=== PATIENT | female | born 2000 | race Caucasian/White ===

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

== ENCOUNTER → 2019-02-15 | Outpatient (CLI) | payer OTHER ==
[~2019-02-15] MED LIST changes: +[UNRECOGNIZED DRUG - REMARK]
[2019-02-18 07:08] LABS: CHLAMYDIA BY NAA Negative (Negative); GONOCOCCUS BY NAA Negative (Negative); TRICH VAG BY NAA Negative (Negative)
== END | disposition home or self-care (01) ==
LOC: LAB EV 12:48 → LAB SHORT 12:48
PROVIDERS: Physician Assistant Medical
DX: N94.10 Unspecified dyspareunia (principal)
CPT/HCPCS: 87070; 87147; 87205; 87491; 87591; 87661

== ENCOUNTER 2019-02-22 09:12 | Emergency (ER) | payer OTHER ==
[~2019-02-22] VITALS: Ht 162.6 cm; Wt 92.5 kg
[~2019-02-22 09:12] MED LIST changes: -[UNRECOGNIZED DRUG - REMARK]
[2019-02-22] MEDS ORDERED: [UNRECOGNIZED DRUG - REMARK] (09:32)
== END 2019-02-22 10:35 | disposition home or self-care (01) ==
LOC: ER 09:12
DX: R10.9 Unspecified abdominal pain (principal); Z79.899 Other long term (current) drug therapy
CPT/HCPCS: 74018; 99283-25

== ENCOUNTER 2019-10-18 23:24 | Emergency (ER) | payer OTHER ==
[~2019-10-18] VITALS: Ht 162.6 cm; Wt 90.7 kg
[~2019-10-18 23:24] MED LIST changes: +[UNRECOGNIZED DRUG - REMARK]
[2019-10-19] MEDS ORDERED: HYDROXYZINE PAM25 MG PO (00:23)
[2019-10-19] MEDS ORDERED: HYDSUL200 PO (00:23)
[2019-10-19] MEDS ORDERED: Cymbalta30 MG (00:23)
[2019-10-19 01:08] LABS: BASOPHILS ABSOLUTE AUTO 0.05 K/mm3 (0.00-0.23); BASOPHILS PERCENT AUTO 0 % (0-2); EOSINOPHILS ABSOLUTE AUTO 0.32 K/mm3 (0.00-0.68); EOSINOPHILS PERCENT AUTO 2 % (0-6); Hematocrit 45.8 % (33.0-51.0); Hemoglobin 14.9 g/dL (11.5-16.0); IMMATURE GRAN ABSOLUTE AUTO 0.05 K/mm3 (0.00-0.10); IMMATURE GRAN PERCENT AUTO 0 % (0-1); LYMPHOCYTES ABSOLUTE AUTO 4.11 K/mm3 (0.84-5.20); LYMPHOCYTES PERCENT AUTO 29 % (21-46); MONOCYTES ABSOLUTE AUTO 1.37 K/mm3 (0.16-1.47); MONOCYTES PERCENT AUTO 10 % (4-13); Mean Corpuscular HGB 30.2 pg (26.0-34.0); Mean Corpuscular HGB Conc 32.5 g/dL (31.5-36.5); Mean Corpuscular Volume 93 fL (80-100); Mean Platelet Volume 9.6 fL (9.1-12.4); NEUTROPHILS ABSOLUTE AUTO 8.21 K/mm3 (1.96-9.15); NEUTROPHILS PERCENT AUTO 58 % (41-73); Platelet Count 365 K/mm3 (150-400); RDW Coefficient Variation 12.2 % (11.7-14.2); Red Blood Cell Count 4.93 M/mm3 (3.80-5.20); White Blood Cell Count 14.11 K/mm3 (4.00-11.30)
[2019-10-19 01:13] LABS: Source, Urine Clean Catch
[2019-10-19 01:17] LABS: Appearance, Urine Clear (Clear); Bilirubin, Urine Neg (Neg); Blood, Urine 4+ (Neg); Color, Urine Yellow (P-Yellow); Glucose Qualitative, Urine Neg (Neg); Ketones, Urine Neg (Neg); Leukocyte Esterase, Urine 1+ (Neg); Nitrite, Urine Neg (Neg); Protein, Urine 2+ (Neg); Specific Gravity, Urine 1.015 (1.003-1.022); Urobilinogen, Urine NORM (Normal)
[2019-10-19 01:28] LABS: Bacteria Many /hpf; Squamous Epithelial Cells Mod /hpf (Few)
[2019-10-19 01:30] LABS: Alanine Aminotransfer (ALT/SGP 22 U/L (12-78); Albumin, Blood 3.9 g/dL (3.4-5.0); Albumin/Globulin Ratio 0.9 (0.8-1.8); Alk Phos 127 U/L (50-136); Anion Gap 7 mmol/L (6-16); Aspartate Aminotrans (AST/SGOT 12 U/L (12-37); Bilirubin, Total 0.5 mg/dL (0.1-1.0); Blood Urea Nitrogen 14 mg/dL (8-24); Bun/Creatinine Ratio 13.9 (12.0-20.0); CO2, Blood 25 mmol/L (21-32); Calcium, Blood 9.4 mg/dL (8.5-10.1); Chloride, Blood 109 mmol/L (98-108); Creatinine, Blood 1.01 mg/dL (0.40-1.00); Globulin, Blood 4.5 g/dL (2.2-4.0); Glomerular Filtration Rate >60 (60-); Glucose, Blood 86 mg/dL (70-99); Potassium, Blood 4.2 mmol/L (3.5-5.5); Sodium, Blood 141 mmol/L (136-145); Total Protein, Blood 8.4 g/dL (6.4-8.2)
[2019-10-19] MEDS ORDERED: IBUP600 PO (02:39)
[2019-10-19] MEDS ORDERED: KEFLEX500 MG PO (02:39)
== END 2019-10-19 03:03 | disposition home or self-care (01) ==
LOC: ER 23:24
PROVIDERS: Physician Assistant
DX: N12 Tubulo-interstitial nephritis, not specified as acute or chronic (principal); Z88.8 Allergy status to other drugs, medicaments and biological substances; Z79.899 Other long term (current) drug therapy
CPT/HCPCS: 36415; 80053; 81001; 81025; 83690; 85025; 87077; 87086; 87186; 96365; 96375; 99284; J0696; J1885

== ENCOUNTER 2021-12-15 11:06 | Emergency (ER) | payer OTHER ==
[~2021-12-15] VITALS: Ht 162.6 cm; Wt 73.5 kg
[~2021-12-15 11:06] MED LIST changes: +Cymbalta30 MG; +HYDROXYZINE PAM25 MG PO; +HYDSUL200 PO; +IBUP600 PO; +KEFLEX500 MG PO
[2021-12-15 11:42] LABS: Source, Urine Clean Catch
[2021-12-15 11:42] LABS: BASOPHILS ABSOLUTE AUTO 0.03 K/mm3 (0.00-0.23); BASOPHILS PERCENT AUTO 0 % (0-2); EOSINOPHILS ABSOLUTE AUTO 0.15 K/mm3 (0.00-0.68); EOSINOPHILS PERCENT AUTO 2 % (0-6); Hematocrit 43.9 % (33.0-51.0); Hemoglobin 14.5 g/dL (11.5-16.0); IMMATURE GRAN ABSOLUTE AUTO 0.01 K/mm3 (0.00-0.10); IMMATURE GRAN PERCENT AUTO 0 % (0-1); LYMPHOCYTES ABSOLUTE AUTO 2.18 K/mm3 (0.84-5.20); LYMPHOCYTES PERCENT AUTO 30 % (21-46); MONOCYTES ABSOLUTE AUTO 0.61 K/mm3 (0.16-1.47); MONOCYTES PERCENT AUTO 8 % (4-13); Mean Corpuscular HGB 31.2 pg (26.0-34.0); Mean Corpuscular Volume 94 fL (80-100); Mean Platelet Volume 9.6 fL (9.1-12.4); NEUTROPHILS ABSOLUTE AUTO 4.29 K/mm3 (1.96-9.15); NEUTROPHILS PERCENT AUTO 59 % (41-73); Platelet Count 338 K/mm3 (150-400); RDW Coefficient Variation 12.9 % (11.7-14.2); RDW Standard Deviation 45.3 fL (35.1-46.3); Red Blood Cell Count 4.65 M/mm3 (3.80-5.20); White Blood Cell Count 7.27 K/mm3 (4.00-11.30)
[2021-12-15 11:46] LABS: Appearance, Urine Clear (Clear); Bilirubin, Urine Neg (Neg); Blood, Urine 1+ (Neg); Color, Urine Yellow (P-Yellow); Glucose Qualitative, Urine Neg (Neg); Ketones, Urine Neg (Neg); Leukocyte Esterase, Urine Neg (Neg); Nitrite, Urine Neg (Neg); Protein, Urine 1+ (Neg); Specific Gravity, Urine 1.025 (1.003-1.022); Urobilinogen, Urine NORM (Normal)
[2021-12-15 11:59] LABS: Bacteria Rare /hpf; Red Blood Cells, Urine 0-2 /hpf (0-2); Squamous Epithelial Cells Few /hpf (Few); White Blood Cells, Urine 0-2 /hpf (0-5)
[2021-12-15 11:59] LABS: Albumin, Blood 3.9 g/dL (3.4-5.0); Albumin/Globulin Ratio 1.1 (0.8-1.8); Bilirubin, Total 0.5 mg/dL (0.1-1.0); Bun/Creatinine Ratio 21.5 (12.0-20.0); Calcium, Blood 8.8 mg/dL (8.5-10.1); Creatinine, Blood 0.84 mg/dL (0.40-1.00); Globulin, Blood 3.5 g/dL (2.2-4.0); Potassium, Blood 4.3 mmol/L (3.5-5.5); Total Protein, Blood 7.4 g/dL (6.4-8.2)
[2021-12-15] MEDS ORDERED: AMOCLA875 PO (12:53)
[2021-12-15] MEDS ORDERED: ONDA4ODT MM (12:53)
== END 2021-12-15 13:01 | disposition home or self-care (01) ==
LOC: ER 11:06
PROVIDERS: Physician Assistant
DX: K02.9 Dental caries, unspecified (principal); R11.2 Nausea with vomiting, unspecified; Z91.018 Allergy to other foods; Z88.8 Allergy status to other drugs, medicaments and biological substances
CPT/HCPCS: 36415; 80053; 81001; 83690; 84703; 85025; 96374; 99283-25; J2405; J7030

== ENCOUNTER → 2022-07-01 | Outpatient (CLI) | payer OTHER ==
[~2022-07-01] MED LIST changes: +AMOCLA875 PO; +ONDA4ODT MM
== END | disposition home or self-care (01) ==
LOC: LAB SHORT 15:20
PROVIDERS: Advanced Practice Midwife
DX: Z01.419 Encounter for gynecological examination (general) (routine) without abnormal findings (principal); R35.0 Frequency of micturition
CPT/HCPCS: 87086; G0145

== ENCOUNTER → 2023-01-17 | Outpatient (CLI) | payer OTHER ==
[~2023-01-17] MED LIST changes: +ACET500 PO; +QUETIAPINE FUM10011 PO
== END | disposition home or self-care (01) ==
LOC: LAB SHORT 12:43 → LAB 12:43
DX: Z33.1 Pregnant state, incidental (principal)
CPT/HCPCS: 84702

== ENCOUNTER 2023-01-19 22:40 | Emergency (ER) | payer OTHER ==
[~2023-01-19] VITALS: Ht 165.1 cm; Wt 90.7 kg
[~2023-01-19 22:40] MED LIST changes: -ACET500 PO; -QUETIAPINE FUM10011 PO
[2023-01-19] MEDS ORDERED: QUETIAPINE FUM10011 PO (23:28)
[2023-01-20 00:27] LABS: Source, Urine Clean Catch
[2023-01-20 00:34] LABS: Bilirubin, Urine Neg (Neg); Blood, Urine Neg (Neg); Glucose Qualitative, Urine Neg (Neg); Ketones, Urine 2+ (Neg); Leukocyte Esterase, Urine Neg (Neg); Nitrite, Urine Neg (Neg); Protein, Urine Neg (Neg); Urobilinogen, Urine NORM (Normal)
[2023-01-20 00:55] LABS: Appearance, Urine Clear (Clear); Color, Urine Yellow (P-Yellow)
[2023-01-20] MEDS ORDERED: ACET500 PO (01:04)
[2023-01-20 01:24] VITALS: BP 118/88
== END 2023-01-20 01:06 | disposition home or self-care (01) ==
LOC: ER 22:40
PROVIDERS: Emergency Medicine
DX: O20.0 Threatened abortion (principal); Z3A.01 Less than 8 weeks gestation of pregnancy; Z91.018 Allergy to other foods; Z79.899 Other long term (current) drug therapy
CPT/HCPCS: 76801; 76817; 81003; 84702; 86900; 86901; 99284-25

== ENCOUNTER 2023-01-27 22:27 | Emergency (ER) | payer OTHER ==
[~2023-01-27] VITALS: Ht 165.1 cm; Wt 90.7 kg
[~2023-01-27 22:27] MED LIST changes: +ACET500 PO; +QUETIAPINE FUM10011 PO
[2023-01-27 23:04] LABS: BASOPHILS ABSOLUTE AUTO 0.02 K/mm3 (0.00-0.23); BASOPHILS PERCENT AUTO 0 % (0-2); EOSINOPHILS ABSOLUTE AUTO 0.04 K/mm3 (0.00-0.68); EOSINOPHILS PERCENT AUTO 0 % (0-6); Hemoglobin 14.3 g/dL (11.5-16.0); IMMATURE GRAN ABSOLUTE AUTO 0.04 K/mm3 (0.00-0.10); IMMATURE GRAN PERCENT AUTO 0 % (0-1); LYMPHOCYTES ABSOLUTE AUTO 3.34 K/mm3 (0.84-5.20); LYMPHOCYTES PERCENT AUTO 23 % (21-46); MONOCYTES ABSOLUTE AUTO 1.15 K/mm3 (0.16-1.47); MONOCYTES PERCENT AUTO 8 % (4-13); Mean Corpuscular HGB 30.7 pg (26.0-34.0); Mean Corpuscular Volume 90 fL (80-100); Mean Platelet Volume 9.3 fL (9.1-12.4); NEUTROPHILS ABSOLUTE AUTO 9.72 K/mm3 (1.96-9.15); NEUTROPHILS PERCENT AUTO 68 % (41-73); Platelet Count 375 K/mm3 (150-400); RDW Coefficient Variation 12.8 % (11.7-14.2); RDW Standard Deviation 41.7 fL (35.1-46.3); Red Blood Cell Count 4.66 M/mm3 (3.80-5.20); White Blood Cell Count 14.31 K/mm3 (4.00-11.30)
[2023-01-27 23:51] LABS: Albumin, Blood 4.1 g/dL (3.4-5.0); Albumin/Globulin Ratio 1.1 (0.8-1.8); Bilirubin, Total 0.4 mg/dL (0.1-1.0); Bun/Creatinine Ratio 15.2 (12.0-20.0); Calcium, Blood 9.1 mg/dL (8.5-10.1); Creatinine, Blood 0.72 mg/dL (0.40-1.00); Globulin, Blood 3.8 g/dL (2.2-4.0); Potassium, Blood 3.7 mmol/L (3.5-5.5); Total Protein, Blood 7.9 g/dL (6.4-8.2)
[2023-01-28] MEDS ORDERED: PRENATAL TABLE1 EAC2 PO (00:23)
[2023-01-28 00:31] LABS: Source, Urine Clean Catch
[2023-01-28 00:37] LABS: Bilirubin, Urine Neg (Neg); Blood, Urine Neg (Neg); Glucose Qualitative, Urine Neg (Neg); Ketones, Urine 3+ (Neg); Leukocyte Esterase, Urine Neg (Neg); Nitrite, Urine Neg (Neg); Protein, Urine Neg (Neg); Specific Gravity, Urine 1.015 (1.003-1.022); Urobilinogen, Urine NORM (Normal)
[2023-01-28 00:47] LABS: Appearance, Urine Clear (Clear); Color, Urine Yellow (P-Yellow)
[2023-01-28 03:03] VITALS: BP 134/91
[2023-01-28] MEDS ORDERED: ACET500 PO (03:41)
== END 2023-01-28 03:59 | disposition home or self-care (01) ==
LOC: ER 22:27
PROVIDERS: Student in an Organized Health Care Education/Training Program
DX: O26.891 Other specified pregnancy related conditions, first trimester (principal); R10.2 Pelvic and perineal pain; O99.281 Endocrine, nutritional and metabolic diseases complicating pregnancy, first trimester; E86.0 Dehydration; O34.81 Maternal care for other abnormalities of pelvic organs, first trimester; N83.209 Unspecified ovarian cyst, unspecified side; Z3A.01 Less than 8 weeks gestation of pregnancy; Z91.02 Food additives allergy status
CPT/HCPCS: 76801; 76817; 80053; 81003; 84702; 85025; 96361; 96374; 99284; J1885; J7030

== ENCOUNTER → 2023-08-25 | Outpatient (CLI) | payer OTHER ==
[~2023-08-25] MED LIST changes: +PRENATAL TABLE1 EAC2 PO
== END ==
LOC: LAB 14:22 → LAB SHORT 14:22
DX: O09.893 Supervision of other high risk pregnancies, third trimester (principal)
CPT/HCPCS: 87081; 87150

== ENCOUNTER 2023-09-17 19:04 | Inpatient (IN) | payer OTHER ==
[2023-09-17] VITALS (7 sets, daily range): BP systolic 136–166; BP diastolic 75–98
[~2023-09-17] VITALS: Ht 162.6 cm; Wt 102.5 kg
[2023-09-17] MEDS ORDERED: Misoprostol 25 MCG Tab VAG ONE (20:00)
[2023-09-17] MEDS ORDERED: FentaNYL Citrate 50 MCG/ML 2 ML Injection IV ONE (21:00)
[2023-09-17] MEDS ORDERED: Acetaminophen 500 MG Tab PO PRN (21:00)
[2023-09-17] MEDS ORDERED: Lactated Ringer's 1,000 ML IV SCH (21:00)
[2023-09-17] MEDS ORDERED: Insulin Glargine-Yfgn 100 Unit/mL 3 ML SYR SC SCH (21:00)
[2023-09-17] MEDS ORDERED: OXYTOCIN/RINGER'S LACTATE 500 ML IV SCH ×2 (21:00)
[2023-09-17 21:19] LABS: BASOPHILS ABSOLUTE AUTO 0.02 K/mm3 (0.00-0.23); BASOPHILS PERCENT AUTO 0 % (0-2); EOSINOPHILS PERCENT AUTO 2 % (0-6); Hematocrit 37.8 % (33.0-51.0); Hemoglobin 13.1 g/dL (11.5-16.0); IMMATURE GRAN ABSOLUTE AUTO 0.07 K/mm3 (0.00-0.10); IMMATURE GRAN PERCENT AUTO 1 % (0-1); LYMPHOCYTES ABSOLUTE AUTO 2.13 K/mm3 (0.84-5.20); LYMPHOCYTES PERCENT AUTO 16 % (21-46); MONOCYTES ABSOLUTE AUTO 1.15 K/mm3 (0.16-1.47); MONOCYTES PERCENT AUTO 8 % (4-13); Mean Corpuscular HGB 31.3 pg (26.0-34.0); Mean Corpuscular HGB Conc 34.7 g/dL (31.5-36.5); Mean Corpuscular Volume 90 fL (80-100); Mean Platelet Volume 10.7 fL (9.1-12.4); NEUTROPHILS ABSOLUTE AUTO 10.15 K/mm3 (1.96-9.15); NEUTROPHILS PERCENT AUTO 74 % (41-73); Platelet Count 240 K/mm3 (150-400); RDW Coefficient Variation 13.4 % (11.7-14.2); RDW Standard Deviation 43.9 fL (35.1-46.3); Red Blood Cell Count 4.19 M/mm3 (3.80-5.20); White Blood Cell Count 13.72 K/mm3 (4.00-11.30)
[2023-09-17] MEDS ORDERED: Calcium Carbonate 500 MG Tab Chew PO ONE (22:35)
[2023-09-17] MEDS ORDERED: Zolpidem Tartrate 10 MG Tab PO SCH (23:05)
[2023-09-18] VITALS (22 sets, daily range): BP systolic 118–206; BP diastolic 71–109
[2023-09-18] MEDS ORDERED: BUPR150ER PO (07:28)
[2023-09-18] MEDS ORDERED: BUPROPION XL450 MG PO (07:28)
[2023-09-18] MEDS ORDERED: Ampicillin Sod 2,000 MG in NS 100 ML IV STA (08:07)
[2023-09-18] MEDS ORDERED: Lidocaine HCl 1% 30 ML SDV XX SCH (08:15)
[2023-09-18] MEDS ORDERED: ePHEDrine Sulfate 50 MG/ML 1ML Injection XX PRN (08:15)
[2023-09-18] MEDS ORDERED: Oxytocin 10 Unit / ML Vial IM SCH (08:15)
[2023-09-18] MEDS ORDERED: Castor Oil 59.146 ML BTL TOP SCH (08:15)
[2023-09-18] MEDS ORDERED: Methylergonovine Maleate 0.2MG / ML 1ML Amp IM SCH (08:15)
[2023-09-18] MEDS ORDERED: Lactated Ringer's 1,000 ML IV SCH ×2 (08:15→23:55)
[2023-09-18] MEDS ORDERED: Bupivacaine HCl 2.5 MG/ML 10ML P/F Injection XX SCH (08:15)
[2023-09-18] MEDS ORDERED: FentaNYL 2mcg/ml-Bup 0.1% Epd 250 ML EPI SCH (08:15)
[2023-09-18] MEDS ORDERED: Bupivacaine 0.5% HCl 5 MG/ML 30MLVIAL XX SCH (08:15)
[2023-09-18] MEDS ORDERED: Misoprostol 200 MCG Tab PR SCH (08:15)
[2023-09-18] MEDS ORDERED: Ampicillin Sod 1,000 MG in NS 100 ML IV SCH (12:00)
[2023-09-18] MEDS ORDERED: FentaNYL Citrate 50 MCG/ML 2 ML Injection ONE (15:45)
[2023-09-18] MEDS ORDERED: FentaNYL Citrate 50 MCG/ML 2 ML Injection IV ONE (17:10)
[2023-09-18] MEDS ORDERED: ePHEDrine Sulfate 50 MG/ML 1ML Injection IV PRN (20:45)
[2023-09-18] MEDS ORDERED: Naloxone HCl 0.4MG / ML 1ML Vial IV PRN (20:45)
[2023-09-18] MEDS ORDERED: Zolpidem Tartrate 10 MG Tab PO SCH (21:00)
[2023-09-18] MEDS ORDERED: Calcium Carbonate 500 MG Tab Chew PO PRN (22:55)
[2023-09-18] MEDS ORDERED: CeFAZolin Sodium 2,000 MG in NS 100 ML IV SCH (23:55)
[2023-09-19] VITALS (12 sets, daily range): BP systolic 113–165; BP diastolic 64–104
[2023-09-19] MEDS ORDERED: Citric Acid/Sodium Citrate 30 ML BTL PO ONE (00:10)
[2023-09-19] MEDS ORDERED: Metoclopramide HCl 5MG / ML 2ML Vial IV ONE (00:10)
[2023-09-19] MEDS ORDERED: Azithromycin 500 MG in NS 250 ML IV ONE (00:15)
[2023-09-19] MEDS ORDERED: Tranexamic Acid 100 ML IV ONE (00:40)
[2023-09-19] MEDS ORDERED: Bupivacaine 0.75%/Dext 8.25% 2 ML Amp IT ONE (01:12)
[2023-09-19] MEDS ORDERED: ePHEDrine Sulfate 50 MG/ML 1ML Injection ONE (01:48)
[2023-09-19] MEDS ORDERED: Oxytocin 10 Unit / ML Vial ONE ×2 (01:57)
[2023-09-19] MEDS ORDERED: Phenylephrine HCl 100 MCG/ML-NS 10MLSYR (1MG/10ML) ONE (01:57)
[2023-09-19] MEDS ORDERED: Albuterol 2.5 MG/3 ML VIAL INH PRN (02:20)
[2023-09-19] MEDS ORDERED: HYDROmorphone HCl/Pf 1MG SYR IV PRN ×2 (02:20→03:10)
[2023-09-19] MEDS ORDERED: FentaNYL Citrate 50 MCG/ML 2 ML Injection IV PRN ×2 (02:20)
[2023-09-19] MEDS ORDERED: Morphine Sulfate 4 MG/1 ML Injection IV PRN (02:20)
[2023-09-19] MEDS ORDERED: Prochlorperazine Edisylate 10 mg Vial IV PRN (02:20)
[2023-09-19] MEDS ORDERED: Ondansetron HCl 2 MG / ML 2ML Vial IV PRN ×2 (02:25→03:05)
[2023-09-19] MEDS ORDERED: Meperidine HCl 50 MG/ML 1ML Injection IV PRN (02:30)
[2023-09-19] MEDS ORDERED: OXYTOCIN/RINGER'S LACTATE 500 ML IV SCH (03:00)
[2023-09-19] MEDS ORDERED: DiphenhydrAMINE HCL 25 MG Cap PO PRN (03:00)
[2023-09-19] MEDS ORDERED: OxyCODONE HCL 5 MG TAB PO PRN ×2 (03:00→03:05)
[2023-09-19] MEDS ORDERED: Metoclopramide HCl 10 MG Tab PO PRN (03:00)
[2023-09-19] MEDS ORDERED: Carboprost Tromethamine 250 MCG/ML 1ML Amp IM PRN (03:05)
[2023-09-19] MEDS ORDERED: Simethicone 80 MG Chew PO PRN (03:05)
[2023-09-19] MEDS ORDERED: Promethazine HCl 25 MG Tab PO PRN (03:05)
[2023-09-19] MEDS ORDERED: Measles/Mumps/Rubella Vaccine 0.5 ML Vial SC ONE (03:10)
[2023-09-19] MEDS ORDERED: Misoprostol 200 MCG Tab PR PRN (03:10)
[2023-09-19] MEDS ORDERED: Magnesium Hydroxide Conc 10 ML UDC PO PRN (03:10)
[2023-09-19] MEDS ORDERED: Lanolin Cream TOP PRN (03:10)
[2023-09-19] MEDS ORDERED: Methylergonovine Maleate 0.2 MG Tab PO PRN (03:10)
[2023-09-19] MEDS ORDERED: Lactated Ringer's 1,000 ML IV SCH (03:15)
[2023-09-19] MEDS ORDERED: Acetaminophen 500 MG Tab PO PRN (03:50)
[2023-09-19] MEDS ORDERED: Ketorolac Tromethamine 30mg Vial IV PRN (03:50)
[2023-09-19] MEDS ORDERED: Ketorolac Tromethamine 30mg Vial IV SCH (04:00)
--- NOTE | 2023-09-19 04:10 | NUR ---
PACU NOTE Difficulty getting BP readings in PACU due to pts shaking. Dr. Hampton aware. Orders for demerol given. Once pt recieved medication shaking improved and bp was able to be read again. Pt recieved a second dose because she began shaking again.
--- NOTE | 2023-09-19 05:46 | NUR ---
LATE ENTRY: ASSUMED CARE OF PATIENT POST-PACU D/C. VS STABLE. BLEEDING SCANT. MEDICATED PER EMAR.
[2023-09-19] MEDS ORDERED: Acetaminophen 500 MG Tab PO SCH (06:00)
[2023-09-19] MEDS ORDERED: buPROPion HCL 150 MG TAB.SR.12H PO SCH (09:00)
[2023-09-19] MEDS ORDERED: Prenatal Vit/FE Fumarate/FA 1 Tab PO SCH (09:00)
[2023-09-19] MEDS ORDERED: Polyethylene Glycol 3350 17 gm PO SCH (09:00)
[2023-09-19 09:11] LABS: BASOPHILS ABSOLUTE AUTO 0.03 K/mm3 (0.00-0.23); BASOPHILS PERCENT AUTO 0 % (0-2); EOSINOPHILS ABSOLUTE AUTO 0.02 K/mm3 (0.00-0.68); EOSINOPHILS PERCENT AUTO 0 % (0-6); Hematocrit 34.2 % (33.0-51.0); Hemoglobin 11.6 g/dL (11.5-16.0); IMMATURE GRAN ABSOLUTE AUTO 0.11 K/mm3 (0.00-0.10); IMMATURE GRAN PERCENT AUTO 1 % (0-1); LYMPHOCYTES PERCENT AUTO 11 % (21-46); MONOCYTES ABSOLUTE AUTO 1.27 K/mm3 (0.16-1.47); MONOCYTES PERCENT AUTO 7 % (4-13); Mean Corpuscular HGB 30.6 pg (26.0-34.0); Mean Corpuscular HGB Conc 33.9 g/dL (31.5-36.5); Mean Corpuscular Volume 90 fL (80-100); Mean Platelet Volume 10.5 fL (9.1-12.4); NEUTROPHILS PERCENT AUTO 81 % (41-73); Platelet Count 216 K/mm3 (150-400); RDW Coefficient Variation 13.4 % (11.7-14.2); Red Blood Cell Count 3.79 M/mm3 (3.80-5.20); White Blood Cell Count 17.73 K/mm3 (4.00-11.30)
[2023-09-19] MEDS ORDERED: Ibuprofen 400 MG Tab PO SCH (16:00)
[2023-09-20] VITALS (9 sets, daily range): BP systolic 121–159; BP diastolic 73–99
--- NOTE | 2023-09-20 05:11 | NUR ---
BP 159/93, REPEATED ON OTHER ARM FOR 157/90. PT REPORTS MODERATE-SEVERE PAIN. ANALGESIC ADMINISTERED PER EMAR. PT DENIES ANY HYPERTENSIVE SYMPTOMS. [employer] UPDATED SUPERVISOR EDUCATIONVERONIKA Sparks PLAN TO REPEAT BP IN ONE HOUR
[2023-09-20] MEDS ORDERED: Docusate Sodium 100 MG Cap PO SCH (09:20)
[2023-09-21 02:42] VITALS: BP 127/83
[2023-09-21 07:24] VITALS: BP 126/87
[2023-09-21] MEDS ORDERED: Measles/Mumps/Rubella Vaccine 0.5 ML Vial SC ONE (07:35)
[2023-09-21] MEDS ORDERED: OXAYDO5 M2 PO (08:11)
[2023-09-21] MEDS ORDERED: IBUP800 PO (08:11)
[2023-09-21] MEDS ORDERED: LANOLIN40 GM TOP (08:12)
--- NOTE | 2023-09-21 10:35 | NUR ---
no acute changes this shift. Pt verbalized understanding of printed instructions and MD teaching. Denies additional teaching at this time. ID bands matched w/nb and verification form. Pt d/c'd home ambulatory to care of .
== END 2023-09-21 10:15 | disposition home or self-care (01) | DRG 787 ==
LOC: OBS 19:04 → BC 19:05 → OBS 19:25 → BC 19:25
PROVIDERS: Obstetrics & Gynecology; ADMIT Advanced Practice Midwife
PROC: 10H07YZ Insertion of Other Device into Products of Conception, Via Natural or Artificial Opening (ICD-10-PCS; 2023-09-19)
PROC: 10D00Z1 Extraction of Products of Conception, Low, Open Approach (ICD-10-PCS; principal; 2023-09-19 00:30)
DX: O24.424 Gestational diabetes mellitus in childbirth, insulin controlled (principal); D68.00 Von Willebrand disease, unspecified; O99.12 Other diseases of the blood and blood-forming organs and certain disorders involving the immune mechanism complicating childbirth; O99.324 Drug use complicating childbirth; Z37.0 Single live birth; Z3A.39 39 weeks gestation of pregnancy; O99.824 Streptococcus B carrier state complicating childbirth; O99.344 Other mental disorders complicating childbirth; F41.8 Other specified anxiety disorders; F12.90 Cannabis use, unspecified, uncomplicated; Z88.8 Allergy status to other drugs, medicaments and biological substances; Z91.018 Allergy to other foods; Z79.4 Long term (current) use of insulin; Z79.899 Other long term (current) drug therapy; O99.214 Obesity complicating childbirth; O99.52 Diseases of the respiratory system complicating childbirth; J45.909 Unspecified asthma, uncomplicated; Z90.89 Acquired absence of other organs; Z98.890 Other specified postprocedural states
CPT/HCPCS: 36415; 51702; 59200; 82947; 85025; 86850; 86900; 86901; 86923; 90471; 90707; A9270; J0290; J0456; J0690; J1815; J1885; J2175; J2371; J2590; J2765; J3010; J7050; J7120